=== PATIENT | female | born 1950 | race Caucasian/White ===

== ENCOUNTER 2020-06-10 06:27 | Inpatient (IN) | payer MEDICARE, MEDICAID ==
[~2020-06-10] VITALS: Ht 172.7 cm; Wt 59.0 kg
[~2020-06-10 06:27] MED LIST: ALPRAZOLAM 0.0.25 M1; BUSPAR 5 MG TABL5 M1 PO; COUMADIN 5 MG TA5 M1 PO; DESYREL50 MG PO; DOXEPIN 10 MG C10 MG PO; DUONEB 2.5-0.5 M3 ML INH; ENOXAPARIN80 MG/0.8 SQ; FLEXERIL PO; HYDROCODON-ACE1 EACH PO; LEVAQUIN 500 M500 M3 PO; LEVOTHYROXINE0.05 MG; LYRICA 50 MG50 MG PO; MIRALAX255 GM PO; PLAVIX 75 MG TA75 M1 PO; PRILOSEC40 MG PO; PROZAC 20 MG20 MG; TAMSULOSIN HCL0.4 M1 PO; THIORIDAZINE H100 MG PO
[2020-06-10 06:28] VITALS: BP 131/37
[2020-06-10 07:03] LABS: ABSOLUTE LYMPHOCYTES 0.8 thou/uL (0.8-5.3); ABSOLUTE MONOCYTES 0.6 thou/uL (0.0-1.2); HEMOGLOBIN 15.7 gm/dL (12.0-15.0); WBC 7.1 thou/uL (4.0-11.0)
[2020-06-10 07:06] LABS: ABSOLUTE EOSINOPHILS 0.1 thou/uL (0.0-0.7); ABSOLUTE NEUTROPHILS 5.6 thou/uL (1.6-8.1); BASOPHILS 0.3 %; EOSINOPHILS 0.8 %; HEMATOCRIT 45.2 % (37.0-47.0); LYMPHOCYTES 11.3 %; MCHC 34.8 g/dL (28.0-37.0); MCV 100.4 fL (80.0-100.0); MONOCYTES 8.4 %; MPV 7.8 fl. (7.2-11.1); NUCLEATED RBCS 0 /100WBC; PLATELET COUNT* 179 thou/uL (150-400); POLYS 79.2 %; RDW-CV 12.2 % (10.5-14.5)
[2020-06-10 07:07] LABS: CALCIUM 8.5 mg/dL (8.5-10.1); CREATININE 0.4 mg/dL (0.6-1.3); POTASSIUM 3.2 mmol/L (3.5-5.1)
[2020-06-10 07:11] LABS: ALBUMIN 3.5 g/dL (3.4-5.0); TOTAL BILIRUBIN 0.7 mg/dL (<0.1-1.0); TOTAL PROTEIN 6.8 g/dL (6.4-8.2)
[2020-06-10 07:14] LABS: INR 0.9; PROTIME 10.1 Seconds (9.20-11.50)
[2020-06-10 11:31] VITALS: BP 129/55
[2020-06-10 12:02] VITALS: BP 139/70
[2020-06-10 16:33] VITALS: BP 113/58
[2020-06-10 19:45] VITALS: BP 114/63
[2020-06-11] VITALS: BP 114/63
[2020-06-11 00:17] LABS: URINE BILIRUBIN NEGATIVE (Negative); URINE BLOOD NEGATIVE (Negative); URINE CLARITY CLEAR; URINE COLOR YELLOW; URINE GLUCOSE-RANDOM NEGATIVE (Negative); URINE KETONES TRACE (Negative); URINE NITRITE-REFLEX NEGATIVE (Negative); URINE PROTEIN NEGATIVE (Negative)
[2020-06-11 00:18] LABS: URINE LEUKOCYTES-REFLEX 2+ (Negative)
[2020-06-11 00:51] LABS: BACTERIA-REFLEX >30 Many /HPF (None Seen); CASTS None Seen /LPF (None Seen); CRYSTALS None Seen /LPF (None Seen); SQUAMOUS 4-10 Moderate /LPF (0-3); URINE RBC None Seen /HPF (0-2); URINE WBC-REFLEX >25 Many /HPF (0-5)
[2020-06-11 03:17] LABS: CALCIUM 8.3 mg/dL (8.5-10.1); CREATININE 0.4 mg/dL (0.6-1.3); MAGNESIUM 2.2 mg/dL (1.8-2.4); POTASSIUM 4.1 mmol/L (3.5-5.1)
[2020-06-11 04:00] VITALS: BP 131/63
[2020-06-11 08:00] VITALS: BP 137/62
--- NOTE | 2020-06-11 12:44 | EKG ---
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 : 1950 Requested By: Alvaro Liz Order Number: [id number] MD: Mark Gregory Measurements Intervals [place] Rate: 95 P: 70 TX: 163 QRS: -48 QRSD: 167 T: 88 QT: 437 QTc: 550 Interpretive Statements Sinus rhythm Probable left atrial enlargement Left bundle branch block Compared to ECG 09/17/2012 22:24:32 Left-axis deviation no longer present Electronically Signed On 06-11-2020 12:44:13 X RAY OPERATOR by Mark Gregory [email or web address] <ELECTRONICALLY SIGNED> By: Mark Gregory MD, FACC 06/11/20 1244 7 7 Mark Gregory MD, [facility] /EPI
[2020-06-11 16:00] VITALS: BP 113/36
[2020-06-11 20:05] VITALS: BP 114/69
[2020-06-12 00:39] VITALS: BP 115/67
[2020-06-12 05:52] LABS: CALCIUM 8.4 mg/dL (8.5-10.1); CREATININE 0.5 mg/dL (0.6-1.3); POTASSIUM 3.5 mmol/L (3.5-5.1)
[2020-06-12 08:00] VITALS: BP 96/54
[2020-06-12] MEDS ORDERED: CEFUROXIME250 MG PO (08:56)
[2020-06-12 16:00] VITALS: BP 115/41
[2020-06-12 20:20] VITALS: BP 118/71
[2020-06-13 00:41] VITALS: BP 132/79
[2020-06-13 04:45] VITALS: BP 152/64
[2020-06-13] MEDS ORDERED: HYDROCODON-ACE1 EAC7 PO (08:51)
[2020-06-13 14:20] VITALS: BP 152/64
== END 2020-06-13 15:15 | disposition home or self-care (01) | DRG 690 ==
LOC: M.ERS 06:27 → M.TBA-ER 09:43 → M.2W 09:43
PROVIDERS: Emergency Medicine; Psychiatry & Neurology Neurology; ADMIT Internal Medicine; ATTEND Internal Medicine
DX: N30.00 Acute cystitis without hematuria (principal); S80.12XA Contusion of left lower leg, initial encounter; F44.4 Conversion disorder with motor symptom or deficit; E87.6 Hypokalemia; W01.0XXA Fall on same level from slipping, tripping and stumbling without subsequent striking against object, initial encounter; I73.9 Peripheral vascular disease, unspecified; F41.1 Generalized anxiety disorder; F32.9 Major depressive disorder, single episode, unspecified; G47.00 Insomnia, unspecified; E03.9 Hypothyroidism, unspecified; K27.9 Peptic ulcer, site unspecified, unspecified as acute or chronic, without hemorrhage or perforation; G62.9 Polyneuropathy, unspecified; F10.21 Alcohol dependence, in remission; E61.0 Copper deficiency; R29.2 Abnormal reflex; M47.9 Spondylosis, unspecified; Z96.641 Presence of right artificial hip joint; Z20.828 Contact with and (suspected) exposure to other viral communicable diseases; Y92.89 Other specified places as the place of occurrence of the external cause; Y93.89 Activity, other specified; Y99.8 Other external cause status; Z90.49 Acquired absence of other specified parts of digestive tract; Z79.01 Long term (current) use of anticoagulants; Z79.899 Other long term (current) drug therapy

== ENCOUNTER → 2020-06-21 | Outpatient (CLI) | payer MEDICARE, MEDICAID ==
[~2020-06-21] MED LIST changes: +CEFUROXIME250 MG PO; +HYDROCODON-ACE1 EAC7 PO
== END ==
LOC: M.WC 10:00
PROVIDERS: ATTEND Surgery
DX: S80.12XA Contusion of left lower leg, initial encounter (principal); G61.82 Multifocal motor neuropathy; G82.20 Paraplegia, unspecified; E03.9 Hypothyroidism, unspecified; I73.9 Peripheral vascular disease, unspecified; F10.20 Alcohol dependence, uncomplicated; Z87.891 Personal history of nicotine dependence; Z90.49 Acquired absence of other specified parts of digestive tract; Z96.641 Presence of right artificial hip joint; W19.XXXA Unspecified fall, initial encounter; Y93.89 Activity, other specified; Y92.89 Other specified places as the place of occurrence of the external cause; Y99.8 Other external cause status

== ENCOUNTER → 2020-06-28 | Outpatient (CLI) | payer MEDICARE, MEDICAID | LOC: M.WC 10:00 | PROVIDERS: ATTEND Surgery | DX: S80.12XD Contusion of left lower leg, subsequent encounter (principal); L97.222 Non-pressure chronic ulcer of left calf with fat layer exposed; G61.82 Multifocal motor neuropathy; G82.20 Paraplegia, unspecified; E03.9 Hypothyroidism, unspecified; I73.9 Peripheral vascular disease, unspecified; F10.20 Alcohol dependence, uncomplicated; Z87.891 Personal history of nicotine dependence; Z90.49 Acquired absence of other specified parts of digestive tract; Z96.641 Presence of right artificial hip joint; W19.XXXD Unspecified fall, subsequent encounter ==

== ENCOUNTER → 2020-07-05 | Outpatient (CLI) | payer MEDICARE, MEDICAID | LOC: M.WC 10:00 | PROVIDERS: ATTEND Surgery | DX: S80.12XD Contusion of left lower leg, subsequent encounter (principal); G61.82 Multifocal motor neuropathy; G82.20 Paraplegia, unspecified; E03.9 Hypothyroidism, unspecified; I73.9 Peripheral vascular disease, unspecified; F10.20 Alcohol dependence, uncomplicated; Z87.891 Personal history of nicotine dependence; Z90.49 Acquired absence of other specified parts of digestive tract; Z96.641 Presence of right artificial hip joint; W19.XXXD Unspecified fall, subsequent encounter ==

== ENCOUNTER → 2020-07-12 | Outpatient (CLI) | payer MEDICARE, MEDICAID | LOC: M.WC 09:59 | PROVIDERS: ATTEND Surgery | DX: S80.12XD Contusion of left lower leg, subsequent encounter (principal); L97.822 Non-pressure chronic ulcer of other part of left lower leg with fat layer exposed; G61.82 Multifocal motor neuropathy; G82.20 Paraplegia, unspecified; E03.9 Hypothyroidism, unspecified; I73.9 Peripheral vascular disease, unspecified; F10.20 Alcohol dependence, uncomplicated; Z87.891 Personal history of nicotine dependence; Z90.49 Acquired absence of other specified parts of digestive tract; Z96.641 Presence of right artificial hip joint; W19.XXXD Unspecified fall, subsequent encounter ==

== ENCOUNTER → 2020-07-19 | Outpatient (CLI) | payer MEDICARE, MEDICAID | LOC: M.WC 10:25 | PROVIDERS: ATTEND Surgery | DX: S80.12XD Contusion of left lower leg, subsequent encounter (principal); L97.822 Non-pressure chronic ulcer of other part of left lower leg with fat layer exposed; G61.82 Multifocal motor neuropathy; G82.20 Paraplegia, unspecified; E03.9 Hypothyroidism, unspecified; I73.9 Peripheral vascular disease, unspecified; F10.20 Alcohol dependence, uncomplicated; Z87.891 Personal history of nicotine dependence; Z90.49 Acquired absence of other specified parts of digestive tract; Z96.641 Presence of right artificial hip joint; W19.XXXD Unspecified fall, subsequent encounter ==

== ENCOUNTER → 2020-07-26 | Outpatient (CLI) | payer MEDICARE, MEDICAID | LOC: M.WC 10:22 | PROVIDERS: ATTEND Surgery | DX: S80.12XD Contusion of left lower leg, subsequent encounter (principal); G61.82 Multifocal motor neuropathy; G82.20 Paraplegia, unspecified; E03.9 Hypothyroidism, unspecified; I73.9 Peripheral vascular disease, unspecified; F10.20 Alcohol dependence, uncomplicated; Z87.891 Personal history of nicotine dependence; Z90.49 Acquired absence of other specified parts of digestive tract; Z96.641 Presence of right artificial hip joint; W19.XXXD Unspecified fall, subsequent encounter ==

== ENCOUNTER 2020-08-09 13:45 | Inpatient (IN) | payer MEDICARE, MEDICAID ==
[~2020-08-09] VITALS: Ht 172.7 cm; Wt 59.7 kg
[2020-08-09 13:46] VITALS: BP 134/67
[2020-08-09] MEDS ORDERED: FLEXERIL PO (14:15)
[2020-08-09 14:23] LABS: ABSOLUTE EOSINOPHILS 0.1 thou/uL (0.0-0.7); ABSOLUTE LYMPHOCYTES 1.2 thou/uL (0.8-5.3); ABSOLUTE MONOCYTES 0.6 thou/uL (0.0-1.2); ABSOLUTE NEUTROPHILS 4.3 thou/uL (1.6-8.1); BASOPHILS 0.5 %; EOSINOPHILS 2.2 %; HEMATOCRIT 42.5 % (37.0-47.0); HEMOGLOBIN 14.5 gm/dL (12.0-15.0); LYMPHOCYTES 18.7 %; MCH 35.1 pg (26.0-34.0); MCHC 34.2 g/dL (28.0-37.0); MCV 102.7 fL (80.0-100.0); MONOCYTES 9.5 %; NUCLEATED RBCS 0 /100WBC; PLATELET COUNT* 140 thou/uL (150-400); POLYS 69.1 %; RBC 4.14 mil/uL (4.20-5.00); RDW-CV 12.8 % (10.5-14.5); WBC 6.3 thou/uL (4.0-11.0)
[2020-08-09 14:32] LABS: CALCIUM 8.2 mg/dL (8.5-10.1); CREATININE 0.5 mg/dL (0.6-1.3); POTASSIUM 3.9 mmol/L (3.5-5.1)
[2020-08-09 14:33] LABS: PROTIME 10.3 Seconds (9.20-11.50)
[2020-08-09 14:36] LABS: ALBUMIN 2.9 g/dL (3.4-5.0); TOTAL BILIRUBIN 0.6 mg/dL (<0.1-1.0); TOTAL PROTEIN 5.6 g/dL (6.4-8.2)
[2020-08-09 14:46] LABS: URINE BLOOD 2+ (Negative); URINE CLARITY SL CLOUDY; URINE COLOR YELLOW; URINE GLUCOSE-RANDOM NEGATIVE (Negative); URINE KETONES NEGATIVE (Negative); URINE PROTEIN NEGATIVE (Negative); URINE SPECIFIC GRAVITY 1.025 (1.005-1.030); URINE UROBILINOGEN 0.2 E.U./dl (0.2-1.0)
[2020-08-09 14:47] LABS: URINE BILIRUBIN 1+ (Negative); URINE LEUKOCYTES-REFLEX 2+ (Negative); URINE NITRITE-REFLEX POSITIVE (Negative)
[2020-08-09 14:54] LABS: BACTERIA-REFLEX >30 Many /HPF (None Seen); MUCUS None Seen strn/LPF (None Seen); URINE WBC-REFLEX >25 Many /HPF (0-5); WBC CLUMPS Few (None Seen)
[2020-08-09 14:55] LABS: CASTS None Seen /LPF (None Seen); CRYSTALS None Seen /LPF (None Seen); SQUAMOUS 0-3 Few /LPF (0-3); URINE RBC 3-10 Few /HPF (0-2)
--- NOTE | 2020-08-09 15:39 | EKG ---
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
[2020-08-09 21:20] VITALS: BP 142/61
[2020-08-09 21:30] VITALS: BP 148/74
[2020-08-09 23:40] VITALS: BP 130/70
--- NOTE | 2020-08-10 01:15 | NUR ---
PATIENT ARRIVED FROM ER VIA CART TO ROOM 215. PT ALERT/ORIENTED X4, PLEASANT. PT SAID SHE HAD NUMEROUS LIQUID STOOLS WITH BLOOD PRESENT. PT HAS WOUND ON LT LOWER EXTREMITY AND IS BEING SEEN BY WOUND CARE. PT SAID SHE SCRAPED IT ON WALKER AND IT GOT TO WHERE IT WOULDN'T HEAL SO SENT HER TO WOUND CARE CLINIC. PT ALSO HAS WOUND AT TOP OF SCRACUM SHE SAID FROM HER NEW TOILET SEAT. SHE SAID SHE SCRAPS IT ON TOILET SEAT EACH TIME SHE SITS DOWN. PT DENIES PAIN/NAUSEA DURING THIS TIME. PT SAID SHE FEELS WEAK AND WILL USE BEDPAN UNTIL STRONGER. PT ORIENTED TO ROOM/POLICIES AND VERBALIZES UNDERSTANDING. FREQUENTLY USED ITEMS AND CALL LIGHT WITHIN REACH. SIDERAILS UPX2 AND BED ALARM ON. WILL CONTINUE TO MONITOR.
[2020-08-10 04:20] LABS: ABSOLUTE EOSINOPHILS 0.1 thou/uL (0.0-0.7); ABSOLUTE MONOCYTES 0.6 thou/uL (0.0-1.2); ABSOLUTE NEUTROPHILS 4.3 thou/uL (1.6-8.1); BASOPHILS 0.2 %; EOSINOPHILS 2.5 %; HEMATOCRIT 41.2 % (37.0-47.0); HEMOGLOBIN 14.2 gm/dL (12.0-15.0); LYMPHOCYTES 16.6 %; MCH 35.1 pg (26.0-34.0); MCHC 34.6 g/dL (28.0-37.0); MCV 101.7 fL (80.0-100.0); MONOCYTES 9.1 %; MPV 8.7 fl. (7.2-11.1); NUCLEATED RBCS 0 /100WBC; PLATELET COUNT* 126 thou/uL (150-400); POLYS 71.6 %; RBC 4.05 mil/uL (4.20-5.00); RDW-CV 12.7 % (10.5-14.5)
[2020-08-10 04:33] VITALS: BP 112/60
[2020-08-10 04:36] LABS: CALCIUM 8.3 mg/dL (8.5-10.1); CREATININE 0.4 mg/dL (0.6-1.3); POTASSIUM 3.5 mmol/L (3.5-5.1)
--- NOTE | 2020-08-10 05:02 | NUR ---
PATIENT AWAKE OFF AND ON DURING THIS SHIFT. PT ALERT/ORIENTED X4. PT IN SR WITH BBB ON STATISTICAL CONSULTANT. PT WITH FREED TO DEPENDENT DRAIN WITH YELLOW URINE. PT WITH FLUIDS INFUSING PER DR ORDER. PT HAS NOT HAD ANY STOOLS DURING THIS SHIFT. FREQUENTLY USED ITEMS AND CALL LIGHT WITHIN REACH. SIDERAILS UPX2. WILL CONTINUE TO MONITOR.
[2020-08-10 08:00] VITALS: BP 136/74
[2020-08-10 12:00] VITALS: BP 98/71
--- NOTE | 2020-08-10 15:43 | NUR ---
Pt is A&O. Resides at home with her . Independent and active. Pt uses a walker for mobility. No home o2. Hx of HH. Hx of SNF at [facility]. GI following. Per Pt, she thinks that she will dc to home tomorrow. Pt does not want HH at dc, so will be a home with no needs LOC.
--- NOTE | 2020-08-10 15:53 | EKG ---
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: [place] : 1950 Requested By: Siobhan Greco Order Number: [id number] Sheila MD: Mark rGegory Measurements Intervals [place] Rate: 125 P: 33 MA: 121 QRS: -53 QRSD: 142 T: 155 QT: 354 QTc: 511 Interpretive Statements Sinus tachycardia Ventricular premature complex Left bundle branch block Compared to ECG 08/09/2020 14:14:24 Ventricular premature complex(es) now present Sinus rhythm no longer present Electronically Signed On 08-10-2020 15:53:13 LOSS CONTROL ENGINEER by Mark Gregory [email or web address] <ELECTRONICALLY SIGNED> By: Mark Gregory MD, FACC 08/10/20 1553 1100 1100 Mark Gregory MD, FAC /EPI
[2020-08-10 16:00] VITALS: BP 114/64
--- NOTE | 2020-08-10 18:18 | NUR ---
PATIENT RESTING IN BED. PATIENT IS UP MAX ASSIST OF 1 FOR TRANSFERS. PATIENT HAD SBFT THIS AM WITHOUT INCIDENT. PATIENT TACHYCARDIC THIS AM, DR BUITRAGO NOTIFIED AND FLUID BOLUS AND EKG COMPLETED. PATIENT HAS HAD MULTIPLE LARGE BOWEL MOVEMENTS SINCE RETURNING FROM TEST. PATIENT IS INCONTINENT OF BOWEL. PATIENT HAS GOOD APPETITE. PATIENT DENIES ANY NEEDS AT THIS TIME. CALL LIGHT WITHIN REACH.
[2020-08-10 20:00] VITALS: BP 109/51
[2020-08-11] VITALS: BP 112/55
[2020-08-11 04:00] VITALS: BP 131/56
[2020-08-11 04:14] LABS: HEMATOCRIT 37.7 % (37.0-47.0); HEMOGLOBIN 13.1 gm/dL (12.0-15.0); MCH 35.4 pg (26.0-34.0); MCHC 34.8 g/dL (28.0-37.0); MCV 101.7 fL (80.0-100.0); MPV 9.1 fl. (7.2-11.1); RBC 3.71 mil/uL (4.20-5.00); RDW-CV 12.7 % (10.5-14.5); WBC 8.1 thou/uL (4.0-11.0)
[2020-08-11 04:39] LABS: ALBUMIN 2.4 g/dL (3.4-5.0); CALCIUM 8.1 mg/dL (8.5-10.1); CREATININE 0.6 mg/dL (0.6-1.3); MAGNESIUM 1.7 mg/dL (1.8-2.4); POTASSIUM 3.2 mmol/L (3.5-5.1); TOTAL BILIRUBIN 0.5 mg/dL (<0.1-1.0); TOTAL PROTEIN 4.8 g/dL (6.4-8.2)
--- NOTE | 2020-08-11 05:53 | NUR ---
PATIENT SLEPT WELL DURING THIS SHIFT. PT HAD ONE LARGE BOWEL MOVEMENT ON BEDPAN. PT C/O HEADACHE AND RECEIVED TYLENOL; PT RETURNED TO SLEEP AFTERWARDSS. PT ASSISTED WITH TURNS Q2H PER PROTOCAL BUT REFUSED A FEW TIMES. PT WITH FLUIDS INFUSING PER DR ORDER. 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 PT DENIES NEEDS AT THIS TIME. WILL CONTINUE TO MONITOR.
[2020-08-11 08:45] VITALS: BP 132/73
[2020-08-11] MEDS ORDERED: CIPRO500 M1 PO (10:12)
[2020-08-11] MEDS ORDERED: PROTONIX40 M3 PO (10:12)
[2020-08-11 11:59] VITALS: BP 139/52
[2020-08-11 12:06] VITALS: BP 139/52
--- NOTE | 2020-08-11 12:54 | NUR ---
PT.TO DISCHARGE TODAY IF TAKING PO WELL. SHE DECLINED HOME HEALTH. WILL GO HOME WITH HER . SHE DENIES ANY DISCHARGE NEEDS.
--- NOTE | 2020-08-11 17:00 | NUR ---
PATIENT DISCHARGED TO HOME. DISCHARGE PAPERS REVIEWED AND SIGNED. PRESCRIPTIONS TRANSMITTED TO PHARMACY AND INFORMATION SHEETS GIVEN. IV REMOVED. PATIENT BELONGINGS PACKED. PATIENT DENIES ANY FURTHER NEEDS. PATIENT TAKEN BY WHEELCAHIR TO EXIT. LEFT WITH SON.
[2020-08-11 17:32] VITALS: BP 139/52
== END 2020-08-11 17:00 | disposition home or self-care (01) | DRG 690 ==
LOC: M.ERS 13:45 → M.2W 14:51 → M.TBA-ER 14:51 → M.2W 22:28
PROVIDERS: Family Medicine; Internal Medicine; ADMIT Internal Medicine; ATTEND Internal Medicine
DX: N39.0 Urinary tract infection, site not specified (principal); E44.0 Moderate protein-calorie malnutrition; J98.11 Atelectasis; Z96.641 Presence of right artificial hip joint; E03.9 Hypothyroidism, unspecified; F32.9 Major depressive disorder, single episode, unspecified; Z20.822 Contact with and (suspected) exposure to COVID-19; G47.00 Insomnia, unspecified; F41.1 Generalized anxiety disorder; I73.9 Peripheral vascular disease, unspecified; S81.802A Unspecified open wound, left lower leg, initial encounter; K59.00 Constipation, unspecified; Z90.49 Acquired absence of other specified parts of digestive tract; Z87.891 Personal history of nicotine dependence; Z87.11 Personal history of peptic ulcer disease; Z68.20 Body mass index [BMI] 20.0-20.9, adult; Z79.899 Other long term (current) drug therapy; Z28.21 Immunization not carried out because of patient refusal; X58.XXXA Exposure to other specified factors, initial encounter; Y93.89 Activity, other specified; Y92.89 Other specified places as the place of occurrence of the external cause; Y99.8 Other external cause status

== ENCOUNTER → 2021-04-02 | Outpatient (CLI) | payer MEDICARE, MEDICAID ==
[~2021-04-02] MED LIST changes: +CIPRO500 M1 PO; +PROTONIX40 M3 PO
== END ==
LOC: M.CT 03-26 15:00
PROVIDERS: ATTEND Orthopaedic Surgery
DX: M19.012 Primary osteoarthritis, left shoulder (principal); J44.9 Chronic obstructive pulmonary disease, unspecified